=== PATIENT | female | born 1990 | race Two or more races ===

== ENCOUNTER 2021-01-05 02:22 | Emergency (ER) | payer OTHER, SELFPAY ==
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
[2021-01-05 02:37] VITALS: BP 130/84; BP 130/97; PULSE 100; PULSE 88; RESP 14; TEMP 36.9; O2SAT 100; O2SAT 99; BMI 15.6
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
[2021-01-05 04:27] VITALS: BP 109/65; PULSE 67; RESP 17; O2SAT 97
[2021-01-05] MEDS: Acetaminophen 325 MG TABLET 650 MG PO (04:28)
== END 2021-01-05 04:39 | disposition home or self-care (01) ==
PROVIDERS: Emergency Provider Emergency Medicine
DX: S00.01XA Abrasion of scalp, initial encounter (principal); Y00.XXXA Assault by blunt object, initial encounter; Y93.9 Activity, unspecified; Y92.9 Unspecified place or not applicable; Y99.9 Unspecified external cause status
CPT/HCPCS: 70450; 72125; 99284

== ENCOUNTER 2022-07-05 17:51 | Inpatient (IN) | payer OTHER, SELFPAY ==
--- NOTE | 2022-07-05 18:03 | ED.PSYCH ---
HPI - Psych General Chief Complaint: Psychiatric Symptoms Stated Complaint: CRISIS W/SI,NON MED COMPL,NEEDS MED CL PER EMS Time Seen by Provider: 07/05/22 17:53 Source: patient and EMS Mode of arrival: EMS Limitations: no limitations History of Present Illness HPI Narrative: This is a 31-year-old female history of schizophrenia presenting from home requesting a crisis evaluation, was seen by N in the community and placed on a Section 12, according to patient she is here because her sister made her come in to get evaluated, she tells me she has not been taking her medications because ?those things do not work ?. Patient tells me she feels fine otherwise. She was common cooperative for EMS. Arrives here denies visual, auditory and tactile hallucinations. Denies drugs, alcohol and tobacco. Patient tells me she used to smoke marijuana however has not smoking marijuana while. Patient denies all medical complaints at this time. Related Data Home Medications Medication Instructions Recorded Confirmed citalopram 10 mg tablet 1 tab PO DAILY 07/05/22 07/05/22 divalproex 500 mg tablet,delayed 1 tab PO BID 07/05/22 07/05/22 release mirtazapine 7.5 mg tablet 1 tab PO BEDTIME 07/05/22 07/05/22 prazosin 1 mg capsule 1 cap PO BID 07/05/22 07/05/22 Allergies Allergy/AdvReac Type Severity Reaction Status Date / Time Penicillins Allergy Rash Verified 01/05/21 02:37 Review of Systems Review of Systems: Constitutional : No Weight loss, No Fever, No Chills, No Fatigue, No Malaise ENT/Mouth : No sore throat, No Rhinorrhea Eyes: No Eye Pain, No Swelling, No Redness Cardiovascular : No Chest Pain, No SOB, No Dyspnea on Exertion, No Orthopnea, No Edema, No Palpitations Respiratory : No Cough, No Sputum, No Wheezing Gastrointestinal : No Nausea, No Vomiting, No Diarrhea, No Constipation, No abdominal Pain, No Hematochezia, No Melena Genitourinary : No Dysuria, No Urinary Frequency, No Hematuria, Musculoskeletal : No joint pain, No Myalgias, No Joint Swelling Skin : No Skin Lesions, No rash Neuro : No Weakness, No Numbness, No Dizziness, No Headache Psych : No Anxiety/Panic, No Depression All other systems reviewed and are negative Yes all other systems are reviewed and are negative PMFSH Past Medical History Attestation statement: The following information was validated with the patient. Source: old records reviewed and nursing notes reviewed Physical Exam Vital Signs: Vital Signs: Last Vital Signs Temp 98.3 F 07/05/22 18:07 Pulse 86 07/05/22 18:07 Resp 16 07/05/22 18:07 BP 121/84 07/05/22 18:07 Pulse Ox 96 07/05/22 18:07 O2 Del Method 07/05/22 18:07 BMI result Body Mass Index 18.3 Vital signs stable Appearance: Alert.? Oriented X3.? No acute distress.? Head: Normocephalic, atraumatic, no step-offs or deformities Eyes: Pupils equal, round and reactive to light.?? Neck: Normal inspection.? Neck supple.? CVS: Normal heart rate and rhythm.? Pulses normal.? Respiratory: No respiratory distress.? Breath sounds normal.? Abdomen: Soft and nontender.? Skin: Skin warm and dry.? Normal skin color.? Normal skin turgor.? Extremities: No lower extremity edema.? No calf ttp. 5/5 strength to bilateral upper and lower extremities Neuro: Oriented X 3.? No motor deficit.? No sensory deficit. CN 2-12 intact Course Reevaluation(s) Reevaluation #1: Patient's CBC appears to be within normal limits. Chemistry with no acute findings requiring intervention. UA without infection. Urine toxicology positive for PCP, marijuana. Patient's valproic acid level low, will continue home meds, acetaminophen, salicylates and ethanol negative. Med reconciliation will be done at this time. Patient COVID negative. Will be placed into physician observation to allow more time to be evaluated by the behavioral health team. At time observation was started patient calm & cooperative no acute distress will continue to monitor. Time: 19:29 Medical Decision Making Medical Decision Making MDM Narrative: 31-year-old female presents in acute manic episode coming from home brought in by EMS. Non med compliant Physical examination benign. However patient with rapid pressured speech. And racing thoughts. Concerns for possible schizophrenia/acute episode due to non med compliance. Unlikely metabolic causes. Will rule out polysubstance abuse and ethanol. Plan at this time medical clearance evaluation by the behavioral health team. Differential Diagnosis Differential Diagnoses: The differential diagnosis associated with the presentation includes Concerns for possible schizophrenia/acute episode due to non med compliance. Unlikely metabolic causes. Will rule out polysubstance abuse and ethanol. Admission/Observation Consideration of admission/observation: Escalation of care including admission/observation considered Consult Healthcare Provider Management of the patient was discussed with: Behavioral Health Provider Lab Data MDM Lab Attestation statement: I reviewed the patient's lab results. 07/05/22 18:38 07/05/22 18:38 Labs: Lab Results 07/05/22 07/05/22 07/05/22 Range/Units 18:29 18:29 18:29 WBC (4.8-10.8) X10*3/uL RBC (4.20-5.50) X10*6/uL Hgb (12.0-16.0) g/dl Hct (37.0-47.0) % MCV (80.0-98.0) fL MCH (27.0-33.0) pg MCHC (31.0-35.0) g/dl RDW (11.0-16.0) % Plt Count (160-400) X10*3/uL MPV (9.4-12.3) fL Immature Gran % (Auto) (0.0-0.4) % Neut % (Auto) (45-73) % Lymph % (Auto) (20-40) % Mills % (Auto) (2-11) % Eos % (Auto) (0-4) % Baso % (Auto) (0-2) % Lymph # (Auto) (1.2-4.9) X10*3/uL Mills # (Auto) (0.1-1.2) X10*3/uL Eos # (Auto) (0.0-0.4) X10*3/uL Baso # (Auto) (0.0-0.2) X10*3/uL Abs Immat Gran (auto) (0.00-0.03) X10*3/uL Absolute Neuts (auto) (2.0-8.3) x10*3/uL Absolute Nucleated RBC (0.0-0.012) X10*3/uL Nucleated RBC % (auto) (0.0-0.2) /100WBC Sodium (135-145) mmol/L Potassium (3.3-5.1) mmol/L Chloride (96-108) mmol/L Carbon Dioxide (22-29) mmol/L Anion Gap (12-20) BUN (9-16) mg/dL Creatinine (0.5-1.4) mg/dL Estim Creat Clear Calc Estimated GFR Random Glucose (60-115) mg/dL Calcium (8.4-10.2) mg/dL Magnesium (1.6-2.6) mg/dL Total Bilirubin (0.0-1.0) mg/dL AST (5-31) U/L ALT (0-31) U/L Alkaline Phosphatase (39-117) U/L Total Protein (6.5-8.0) g/dL Albumin (3.5-5.0) g/dL Urine Color Yellow Urine Appearance Clear Urine pH 6.5 (5.0-9.0) Ur Specific [place] <= 1.005 (1.005-1.025) Urine Protein Negative (Neg-Trace) mg/dL Urine Glucose (UA) Negative (Negative) mg/dL Urine Ketones Negative (Negative) mg/dL Urine Blood Negative (Negative) Urine Nitrite Negative (Negative) Ur Leukocyte Esterase Negative (Negative) Salicylates (15-30) mg/dL Urine Opiates Screen Not Detected (Not Detect) Urine Fentanyl Screen Not Detected (Not Detect) Acetaminophen (<30) mcg/mL Ur Barbiturates Screen Not Detected (Not Detect) Valproic Acid (50.0-100.0) mcg/mL Ur Phencyclidine Scrn POSITIVE H (Not Detect) Ur Amphetamines Screen Not Detected (Not Detect) U Benzodiazepines Scrn Not Detected (Not Detect) Urine Cocaine Screen Not Detected (Not Detect) U Marijuana (THC) Screen POSITIVE H (Not Detect) Ethyl Alcohol mg/dL COVID-19 (GURINDER) Negative (Negative) COVID-19 Clin Com See Note 07/05/22 07/05/22 07/05/22 Range/Units 18:38 18:38 18:38 WBC 9.8 (4.8-10.8) X10*3/uL RBC 4.37 (4.20-5.50) X10*6/uL Hgb 13.9 (12.0-16.0) g/dl Hct 42.0 (37.0-47.0) % MCV 96.1 (80.0-98.0) fL MCH 31.8 (27.0-33.0) pg MCHC 33.1 (31.0-35.0) g/dl RDW 12.4 (11.0-16.0) % Plt Count 221 (160-400) X10*3/uL MPV 10.7 (9.4-12.3) fL Immature Gran % (Auto) 0.3 (0.0-0.4) % Neut % (Auto) 57.5 (45-73) % Lymph % (Auto) 33.3 (20-40) % Mills % (Auto) 7.9 (2-11) % Eos % (Auto) 0.5 (0-4) % Baso % (Auto) 0.5 (0-2) % Lymph # (Auto) 3.3 (1.2-4.9) X10*3/uL Mills # (Auto) 0.8 (0.1-1.2) X10*3/uL Eos # (Auto) 0.1 (0.0-0.4) X10*3/uL Baso # (Auto) 0.1 (0.0-0.2) X10*3/uL Abs Immat Gran (auto) 0.03 (0.00-0.03) X10*3/uL Absolute Neuts (auto) 5.6 (2.0-8.3) x10*3/uL Absolute Nucleated RBC 0.000 (0.0-0.012) X10*3/uL Nucleated RBC % (auto) 0.0 (0.0-0.2) /100WBC Sodium 137 (135-145) mmol/L Potassium 4.1 (3.3-5.1) mmol/L Chloride 103 (96-108) mmol/L Carbon Dioxide 25 (22-29) mmol/L Anion Gap 13 (12-20) BUN 3 L (9-16) mg/dL Creatinine 0.83 (0.5-1.4) mg/dL Estim Creat Clear Calc 75.9 Estimated GFR > 60 Random Glucose 116 H (60-115) mg/dL Calcium 9.5 (8.4-10.2) mg/dL Magnesium 2.5 (1.6-2.6) mg/dL Total Bilirubin 0.7 (0.0-1.0) mg/dL AST 21 (5-31) U/L ALT 15 (0-31) U/L Alkaline Phosphatase 47 (39-117) U/L Total Protein 7.4 (6.5-8.0) g/dL Albumin 4.7 (3.5-5.0) g/dL Urine Color Urine Appearance Urine pH (5.0-9.0) Ur Specific [place] (1.005-1.025) Urine Protein (Neg-Trace) mg/dL Urine Glucose (UA) (Negative) mg/dL Urine Ketones (Negative) mg/dL Urine Blood (Negative) Urine Nitrite (Negative) Ur Leukocyte Esterase (Negative) Salicylates < 5.0 L (15-30) mg/dL Urine Opiates Screen (Not Detect) Urine Fentanyl Screen (Not Detect) Acetaminophen < 17 (<30) mcg/mL Ur Barbiturates Screen (Not Detect) Valproic Acid < 12.5 L (50.0-100.0) mcg/mL Ur Phencyclidine Scrn (Not Detect) Ur Amphetamines Screen (Not Detect) U Benzodiazepines Scrn (Not Detect) Urine Cocaine Screen (Not Detect) U Marijuana (THC) Screen (Not Detect) Ethyl Alcohol < 10 mg/dL COVID-19 (GURINDER) (Negative) COVID-19 Clin Com Core Measures AMI core measures followed: Yes Measure exclusions: not indicated Critical Care Time Critical Care Time Critical Care Time: No Discharge Plan Discharge Clinical Impression: PCP (phencyclidine) abuse, Medical non-compliance Patient Disposition: Still a Patient Prescriptions: No Action citalopram 10 mg tablet 1 tab PO DAILY prazosin 1 mg capsule 1 cap PO BID divalproex 500 mg tablet,delayed release (DR/EC) 1 tab PO BID mirtazapine 7.5 mg tablet 1 tab PO BEDTIME Interventions: Isabella-Suicide Risk Severity Scale Last Done: 07/05/22 19:11
[2022-07-05 18:07] VITALS: BP 114/70; BP 121/84; PULSE 86; PULSE 88; RESP 16; TEMP 36.8; O2SAT 96; O2SAT 98; BMI 18.3
--- NOTE | 2022-07-05 18:08 | MHC.CARE ---
Pt was evaluated by [facility] and an inpatient bedsearch
[2022-07-05 18:44] LABS: Basophils Absolute Auto 0.1 X10*3/uL (0.0-0.2); Basophils Percent Auto 0.5 % (0-2); Eosinophils Absolute Auto 0.1 X10*3/uL (0.0-0.4); Eosinophils Percent Auto 0.5 % (0-4); Hemoglobin 13.9 g/dl (12.0-16.0); Imm Gran Abs Auto 0.03 X10*3/uL (0.00-0.03); Imm Gran Pct Auto 0.3 % (0.0-0.4); Lymphocytes Absolute Auto 3.3 X10*3/uL (1.2-4.9); Lymphocytes Percent Auto 33.3 % (20-40); MANUAL DIFF FLAG NO; Mean Corpuscular HGB Conc 33.1 g/dl (31.0-35.0); Mean Corpuscular Hemoglobin 31.8 pg (27.0-33.0); Mean Corpuscular Volume 96.1 fL (80.0-98.0); Mean Platelet Volume 10.7 fL (9.4-12.3); Monocytes Absolute Auto 0.8 X10*3/uL (0.1-1.2); Monocytes Percent Auto 7.9 % (2-11); Neutrophils Absolute Auto 5.6 x10*3/uL (2.0-8.3); Neutrophils Percent Auto 57.5 % (45-73); Platelet Count 221 X10*3/uL (160-400); Red Blood Count 4.37 X10*6/uL (4.20-5.50); Red Cell Distribution Width 12.4 % (11.0-16.0); White Blood Count 9.8 X10*3/uL (4.8-10.8)
[2022-07-05 18:56] LABS: Appearance Urine Clear; Color Urine Yellow; Glucose Urine UA Negative (Negative); Leukocyte Esterase Urine Negative (Negative); Nitrite Urine Negative (Negative); PH 6.5 (5.0-9.0); Specific Gravity - Urine <= 1.005 (1.005-1.025); Urine Blood Negative (Negative); Urine Ketones Negative (Negative); Urine Protein Negative (Neg-Trace)
[2022-07-05 18:57] LABS: Amphetamine Screen Urine Not Detected (Not Detect); Barbiturates, Urine Not Detected (Not Detect); Benzodiazepines Screen Urine Not Detected (Not Detect); Cannabinoid Screen Urine POSITIVE (Not Detect); Cocaine Screen Urine Not Detected (Not Detect); Fentanyl, urine Not Detected (Not Detect); Opiate Screen Urine Not Detected (Not Detect); Phencyclidine Screen Urine POSITIVE (Not Detect)
[2022-07-05 18:59] LABS: Valproate < 12.5 mcg/mL (50.0-100.0)
[2022-07-05 19:04] LABS: Alanine Aminotransferase 15 U/L (0-31); Albumin Level 4.7 g/dL (3.5-5.0); Alkaline Phosphatase 47 U/L (39-117); Anion Gap 13 (12-20); Aspartate Amino Transferase 21 U/L (5-31); Bilirubin Total 0.7 mg/dL (0.0-1.0); Blood Urea Nitrogen 3 mg/dL (9-16); Calcium 9.5 mg/dL (8.4-10.2); Carbon Dioxide 25 mmol/L (22-29); Chloride 103 mmol/L (96-108); Creatinine Clr Calc Pharmacy 75.9; Estimated Glomerular Filt Rate > 60; Ethanol < 10 mg/dL; Glucose Random 116 mg/dL (60-115); Magnesium 2.5 mg/dL (1.6-2.6); Potassium 4.1 mmol/L (3.3-5.1); Sodium 137 mmol/L (135-145); Total Protein 7.4 g/dL (6.5-8.0)
[2022-07-05 19:05] LABS: COVID-19 Test Negative (Negative); IDNOW Serial# 55D5AD1C
[2022-07-05 19:17] LABS: Acetaminophen LAB < 17 mcg/mL (<30); Salicylate < 5.0 mg/dL (15-30)
[2022-07-05] MEDS: diphenhydrAMINE HCL 25 MG CAPSULE 50 MG PO (19:59)
[2022-07-05] MEDS: HaloperidoL 5 MG TABLET 10 MG PO (19:59)
--- NOTE | 2022-07-05 20:52 | PC.NURSE ---
Called [facility] ([facility]) @ [phone] spoke with Leandro, notified patient is in ED POD with disposition [id number] inpatient bed search. Patient was found standing on table and dancing, poor responses to redirection, intrusive at time, attempted pull out locker door, drawing all over the wall in her room, provider notified/ordered Benadryl 50 mg PO and Haldol 10 mg po, but took 25 mg Benadryl and 5 mg Haldol pending effect, will continue to monitor. l
[2022-07-06 02:02] VITALS: BP 117/69; PULSE 71; RESP 16; TEMP 36.2; O2SAT 97
[2022-07-06] MEDS: LORazepam 1 MG TABLET 2 MG PO (04:59)
[2022-07-06] MEDS: HaloperidoL 5 MG TABLET PO (04:59)
[2022-07-06 08:46] VITALS: BP 100/68; PULSE 73; RESP 16; TEMP 37.1; O2SAT 98
[2022-07-06] MEDS: Prazosin HCL 1 MG CAPSULE PO (09:05)
[2022-07-06] MEDS: Mirtazapine 7.5 MG TABLET PO (09:12)
[2022-07-06] MEDS: Escitalopram Oxalate 5 MG TABLET PO (09:12)
--- NOTE | 2022-07-06 10:23 | PC.NURSE ---
Pt sleeping at this time. Bedsearch continues.
--- NOTE | 2022-07-06 10:47 | ECG_ITS ---
Test Reason : medical clearance Blood Pressure : / mmHG Vent. Rate : 064 BPM Atrial Rate : 064 BPM P-R Int : 148 ms QRS Dur : 088 ms QT Int : 398 ms P-R-T Axes : 067 049 025 degrees QTc Int : 410 ms Artifact in tracing Normal sinus rhythm with sinus arrhythmia Normal ECG No previous ECGs available Referred By: Choco Barraza Electronically Signed By:MALCOLM COTA
[2022-07-06 18:00] VITALS: BP 112/83; PULSE 100; TEMP 36.7; O2SAT 98
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
--- NOTE | 2022-07-06 20:43 | PC.NURSE ---
pt refused night meds.
[2022-07-07] MEDS: traZODone HCL 50 MG TABLET PO ×2 (01:15→20:40)
[2022-07-07] MEDS: hydrOXYzine HCL 25 MG TABLET PO (01:15)
[2022-07-07 07:00] VITALS: BMI 21.6
[2022-07-07 08:21] VITALS: BP 109/58; PULSE 86; RESP 16; TEMP 36.6; O2SAT 96
[2022-07-07] MEDS: Prazosin HCL 1 MG CAPSULE PO ×2 (08:23→20:40)
[2022-07-07] MEDS: Escitalopram Oxalate 5 MG TABLET PO (08:23)
[2022-07-07] MEDS: Divalproex Sodium 500 MG TABLET.DR PO (08:23)
[2022-07-07 09:53] LABS: Estimated Average Glucose 97 mg/dL
[2022-07-07 10:12] LABS: Cholesterol 144 mg/dL; HDL Cholesterol 48 mg/dL; LDL Cholesterol Calculated 82 mg/dl; Magnesium 2.3 mg/dL (1.6-2.6); Triglycerides 74 mg/dL
[2022-07-07 10:40] LABS: Folate 12.8 ng/mL (> or = 4.0); Free T4 (Free Thyroxine) 1.17 ng/dL (0.71-1.85); Thyroid Stimulating Hormone 1.17 uIU/mL (0.32-4.0); Vitamin B12 461 pg/mL (200-900)
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
[2022-07-07 20:30] VITALS: BP 120/63; PULSE 80; TEMP 36.1; O2SAT 98
[2022-07-07] MEDS: HaloperidoL 5 MG TABLET 10 MG PO (20:39)
[2022-07-07] MEDS: Mirtazapine 7.5 MG TABLET PO (20:40)
--- NOTE | 2022-07-07 22:26 | PC.NURSE ---
Patient refused HS Depakote.
--- NOTE | 2022-07-07 23:24 | PC.NURSE ---
Patient refused her HS Depakote, 500 mg po. Patient stated I don't want to take that bipolar medicine.
[2022-07-08 06:00] VITALS: BP 102/60; PULSE 63; RESP 18; O2SAT 100
[2022-07-08] MEDS: Escitalopram Oxalate 5 MG TABLET PO (08:34)
[2022-07-08] MEDS: Prazosin HCL 1 MG CAPSULE PO ×2 (08:34→19:39)
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
--- NOTE | 2022-07-08 17:22 | P.PNPSI_ITS ---
Subjective Subjective Date of Service: 07/08/22 Reason For Visit: Schizophrenia,PTSD,polysubstance use order Subjective Notes: Conditional Voluntary and 3 Day Healthcare Proxy: No Guardianship: No Medical Problems Affecting Mental Status: No Interim History: Episode of agitation today, I had an outbreak I wanted to leave to get to my program-I miss them . Agreed to a trial of Vraylar. Asks to taper and stop Depakote. Discussed care with ship officer, Sondra who reports a condition of her probation is treatment compliance. Pt has a three day notice in. Discussed getting her regime stable and then seeing if she can return to her program. Medication Compliance: Yes Side effects from medications: No Attending Groups: Intermittent Review of Systems Acute medical concerns: No Medical Review of Systems: unchanged Mental Status Exam Mental Status Exam Patient Appearance: Fatigued Patient Orientation: Person, Place, Time and Situation Level of Consciousness: Alert Patient Behavior: Talkative, Cooperative, Anxious, Fatigued, Distractible, Confused and Poor Eye Contact Mood Description: Depressed and Sad Affect Description: Flat Patient Cognition Impaired: No Ability to Follow Directions: Fair Speech Pattern: Perseverating, Spontaneous Speech, Rambling, Soft-Spoken and Delayed Memory Description: Remote Impaired and Episodic Impaired Hallucinations: None Delusions: Paranoid Ideation Perceptual Disturbances: Depersonalization and Derealization Thought Process: Distracted and Rumination Thought Content: positive for Circumstantial, positive for Perseveration and positive for Tangential Depressive Symptoms: Increased Anxiety, Insomnia, Difficulty Sleeping, Loss of Int. in Activity, Feelings of Worthlessness, Hopelessness, Feelings of Guilt, Unhappiness, Low Self Esteem and Difficulty Concentrating Judgement: Poor Diagnostics Vital Signs (24Hr): Vital Signs - 24 hr 07/07/22 20:30 07/08/22 06:00 Temperature 97.0 F Pulse Rate 80 63 Respiratory Rate 18 Blood Pressure 120/63 102/60 Pulse Oximetry 98 100 Oxygen Delivery Method Room Air Room Air BMI result Body Mass Index 21.6 Labs 07/05/22 18:38 07/05/22 18:38 Labs: Laboratory Results - last 48 hr 07/07/22 07/07/22 09:15 09:15 Estimat Average Glucose 97 Hemoglobin A1c % 5.0 Magnesium 2.3 Triglycerides 74 Cholesterol 144 LDL Cholesterol, Calc 82 HDL Cholesterol 48 Vitamin B12 461 Folate 12.8 TSH 1.17 Free T4 1.17 Medications Medications Current Medications Acetaminophen (Acetaminophen 325 Mg Tablet) 650 mg PO Q6H PRN PRN Reason: Headache/Pain Mild Scale (1-3) Al Hydroxide/Mg Hydroxide (Magnesium Hydrox/Alum Hydrox 30 Ml Oral.Susp) 30 ml PO Q6H PRN PRN Reason: Heartburn/Nausea Cariprazine (Cariprazine Hcl 3 Mg Capsule) 3 mg PO DAILY [facility] Divalproex Sodium (Divalproex Sodium 500 Mg Tablet.Dr) 500 mg PO BEDTIME [facility] Escitalopram Oxalate (Escitalopram Oxalate 5 Mg Tablet) 5 mg PO DAILY [facility] Last Admin: 07/08/22 08:34 Dose: 5 mg Haloperidol (Haloperidol 5 Mg Tablet) 10 mg PO Q4H PRN PRN Reason: psychosis, agitation Haloperidol (Haloperidol 5 Mg Tablet) 10 mg PO BEDTIME [facility] Last Admin: 07/07/22 20:39 Dose: 10 mg Hydroxyzine HCl (Hydroxyzine Hcl 25 Mg Tablet) 25 mg PO Q6H PRN PRN Reason: Anxiety Last Admin: 07/07/22 01:15 Dose: 25 mg Lorazepam (Lorazepam 1 Mg Tablet) 1 mg PO Q6H PRN PRN Reason: anxiety Magnesium Hydroxide (Milk Of Magnesia 30 Ml Oral.Susp) 30 ml PO DAILY PRN PRN Reason: Constipation Mirtazapine (Mirtazapine 7.5 Mg Tablet) 7.5 mg PO BEDTIME [facility] Last Admin: 07/07/22 20:40 Dose: 7.5 mg Pharmacy Consult (Consult Rx Perform Med Rec) 1 each MISCELLANE ONCE PRN PRN Reason: Consult order Prazosin HCl (Prazosin Hcl 1 Mg Capsule) 1 mg PO BID [facility]; Protocol Last Admin: 07/08/22 08:34 Dose: 1 mg Trazodone HCl (Trazodone Hcl 50 Mg Tablet) 50 mg PO BEDTIME MRX1 PRN PRN Reason: Insomnia Last Admin: 07/07/22 20:40 Dose: 50 mg Allergies Allergies Allergy/AdvReac Type Severity Reaction Status Date / Time Penicillins Allergy Rash Verified 01/05/21 02:37 Assessment & Plan Assessment & Plan (1) PCP (phencyclidine) abuse: Status: Acute Code(s): 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 Family brought pt to court to attempt Section 35, however, pt was sent for mental health eval. Plan: Continue current regime Haldol 10 mg HS Collateral contacts Diagnostics as needed Pt had signed a three day notice of intent today, 07/07-07/12. 07/08/22: Decrease Depakote to 500 mg hs Vraylar 3 mg a.m. Patient educated on: medication risk/benefits Informed Consent: further education needed Reason for contiued inpatient stay Substantial Risk for: rapid decompensation Time Spent With Patient Time: Total time managing care of this patient today 20 minutes.
[2022-07-08 18:00] VITALS: BP 114/70; PULSE 84
[2022-07-08] MEDS: Mirtazapine 7.5 MG TABLET PO (19:39)
[2022-07-08] MEDS: HaloperidoL 5 MG TABLET 10 MG PO (19:39)
[2022-07-08] MEDS: Divalproex Sodium 500 MG TABLET.DR PO (19:39)
[2022-07-08] MEDS: traZODone HCL 50 MG TABLET PO (20:30)
[2022-07-09 08:00] VITALS: BP 109/57; PULSE 70; TEMP 36.6; O2SAT 98
[2022-07-09] MEDS: Escitalopram Oxalate 5 MG TABLET PO (09:05)
[2022-07-09] MEDS: Cariprazine HCl 3 MG CAPSULE PO (09:05)
[2022-07-09] MEDS: Prazosin HCL 1 MG CAPSULE PO ×2 (09:05→20:47)
--- NOTE | 2022-07-09 12:55 | HO.PSYCHPN ---
Subjective Subjective Date of Service: 07/09/22 Reason For Visit: Schizophrenia,PTSD,polysubstance use order Interim History: Patient seen. She has been calm since last agitated episode. Adherent to medications. No side effects. Feels the changes are helpful. Denies SI Review of Systems Review of Systems Constitutional : No Weight loss, No Fever, No Chills, No Fatigue, No Malaise ENT/Mouth : No sore throat, No Rhinorrhea Eyes: No Eye Pain, No Swelling, No Redness Cardiovascular : No Chest Pain, No SOB, No Dyspnea on Exertion, No Orthopnea, No Edema, No Palpitations Respiratory : No Cough, No Sputum, No Wheezing Gastrointestinal : No Nausea, No Vomiting, No Diarrhea, No Constipation, No abdominal Pain, No Hematochezia, No Melena Genitourinary : No Dysuria, No Urinary Frequency, No Hematuria, Musculoskeletal : No joint pain, No Myalgias, No Joint Swelling Skin : No Skin Lesions, No rash Neuro : No Weakness, No Numbness, No Dizziness, No Headache Psych : No Anxiety/Panic, No Depression All other systems reviewed and are negative Yes all other systems are reviewed and are negative Mental Status Exam Mental Status Exam Patient Appearance: Fatigued Patient Orientation: Person, Place, Time and Situation Level of Consciousness: Alert Patient Behavior: Talkative, Cooperative, Anxious, Fatigued, Distractible, Confused and Poor Eye Contact Mood Description: Depressed and Sad Affect Description: Flat Patient Cognition Impaired: No Ability to Follow Directions: Fair Speech Pattern: Perseverating, Spontaneous Speech, Soft-Spoken and Delayed Memory Description: Remote Impaired and Episodic Impaired Diagnostics Vital Signs (24Hr): Vital Signs - 24 hr 07/09/22 08:00 07/09/22 18:00 Temperature 97.9 F 97.8 F Pulse Rate 70 65 Respiratory Rate 18 Blood Pressure 109/57 L 109/61 Pulse Oximetry 98 99 Oxygen Delivery Method Room Air Room Air BMI result Body Mass Index 21.6 Labs 07/05/22 18:38 07/05/22 18:38 Medications Medications Current Medications Acetaminophen (Acetaminophen 325 Mg Tablet) 650 mg PO Q6H PRN PRN Reason: Headache/Pain Mild Scale (1-3) Al Hydroxide/Mg Hydroxide (Magnesium Hydrox/Alum Hydrox 30 Ml Oral.Susp) 30 ml PO Q6H PRN PRN Reason: Heartburn/Nausea Cariprazine (Cariprazine Hcl 3 Mg Capsule) 3 mg PO DAILY [facility] Last Admin: 07/09/22 09:05 Dose: 3 mg Divalproex Sodium (Divalproex Sodium 500 Mg Tablet.Dr) 500 mg PO BEDTIME [facility] Last Admin: 07/09/22 20:47 Dose: 500 mg Escitalopram Oxalate (Escitalopram Oxalate 5 Mg Tablet) 5 mg PO DAILY [facility] Last Admin: 07/09/22 09:05 Dose: 5 mg Haloperidol (Haloperidol 5 Mg Tablet) 10 mg PO Q4H PRN PRN Reason: psychosis, agitation Haloperidol (Haloperidol 5 Mg Tablet) 10 mg PO BEDTIME [facility] Last Admin: 07/09/22 20:47 Dose: 10 mg Hydroxyzine HCl (Hydroxyzine Hcl 25 Mg Tablet) 25 mg PO Q6H PRN PRN Reason: Anxiety Last Admin: 07/07/22 01:15 Dose: 25 mg Lorazepam (Lorazepam 1 Mg Tablet) 1 mg PO Q6H PRN PRN Reason: anxiety Last Admin: 07/09/22 20:47 Dose: 1 mg Magnesium Hydroxide (Milk Of Magnesia 30 Ml Oral.Susp) 30 ml PO DAILY PRN PRN Reason: Constipation Mirtazapine (Mirtazapine 7.5 Mg Tablet) 7.5 mg PO BEDTIME [facility] Last Admin: 07/09/22 20:47 Dose: 7.5 mg Pharmacy Consult (Consult Rx Perform Med Rec) 1 each MISCELLANE ONCE PRN PRN Reason: Consult order Prazosin HCl (Prazosin Hcl 1 Mg Capsule) 1 mg PO BID [facility]; Protocol Last Admin: 07/09/22 20:47 Dose: 1 mg Trazodone HCl (Trazodone Hcl 50 Mg Tablet) 50 mg PO BEDTIME MRX1 PRN PRN Reason: Insomnia Last Admin: 07/09/22 20:47 Dose: 50 mg Allergies Allergies Allergy/AdvReac Type Severity Reaction Status Date / Time Penicillins Allergy Rash Verified 01/05/21 02:37 Assessment & Plan Assessment & Plan (1) PCP (phencyclidine) abuse: Status: Acute Code(s): 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 Family brought pt to court to attempt Section 35, however, pt was sent for mental health eval. Plan: Continue current regime Haldol 10 mg HS Collateral contacts Diagnostics as needed Pt had signed a three day notice of intent today, 07/07-07/12. 07/08/22: Decrease Depakote to 500 mg hs Vraylar 3 mg a.m. 07/09: Continue tx plan. Reason for contiued inpatient stay Substantial Risk for: inability to function and rapid decompensation Time Spent With Patient Time: Total time managing care of this patient today ____ minutes.
[2022-07-09 18:00] VITALS: BP 109/61; PULSE 65; RESP 18; TEMP 36.6; O2SAT 99
[2022-07-09] MEDS: HaloperidoL 5 MG TABLET 10 MG PO (20:47)
[2022-07-09] MEDS: Divalproex Sodium 500 MG TABLET.DR PO (20:47)
[2022-07-09] MEDS: traZODone HCL 50 MG TABLET PO (20:47)
[2022-07-09] MEDS: Mirtazapine 7.5 MG TABLET PO (20:47)
[2022-07-09] MEDS: LORazepam 1 MG TABLET PO (20:47)
[2022-07-10 06:00] VITALS: BP 107/60; PULSE 78; RESP 16
[2022-07-10] MEDS: Escitalopram Oxalate 5 MG TABLET PO (08:58)
[2022-07-10] MEDS: Prazosin HCL 1 MG CAPSULE PO ×2 (08:58→19:37)
[2022-07-10] MEDS: Cariprazine HCl 3 MG CAPSULE PO (08:58)
--- NOTE | 2022-07-10 12:15 | HO.PSYCHPN ---
Subjective Subjective Date of Service: 07/10/22 Reason For Visit: Schizophrenia,PTSD,polysubstance use order Interim History: Patient seen. Complains of feeling bored. She has been adherent to medications. No side effects. Feels the changes are helpful. Improved mood. Improved sleep. No agitation. Denies SI Review of Systems Review of Systems Constitutional : No Weight loss, No Fever, No Chills, No Fatigue, No Malaise ENT/Mouth : No sore throat, No Rhinorrhea Eyes: No Eye Pain, No Swelling, No Redness Cardiovascular : No Chest Pain, No SOB, No Dyspnea on Exertion, No Orthopnea, No Edema, No Palpitations Respiratory : No Cough, No Sputum, No Wheezing Gastrointestinal : No Nausea, No Vomiting, No Diarrhea, No Constipation, No abdominal Pain, No Hematochezia, No Melena Genitourinary : No Dysuria, No Urinary Frequency, No Hematuria, Musculoskeletal : No joint pain, No Myalgias, No Joint Swelling Skin : No Skin Lesions, No rash Neuro : No Weakness, No Numbness, No Dizziness, No Headache Psych : No Anxiety/Panic, No Depression All other systems reviewed and are negative Yes all other systems are reviewed and are negative Mental Status Exam Mental Status Exam Patient Appearance: Fatigued and Appropriate Patient Orientation: Person, Place, Time and Situation Level of Consciousness: Alert Patient Behavior: Appropriate, Talkative, Cooperative, Anxious and Fatigued Mood Description: Calm, Constricted, Depressed and Blunted Affect Description: Blunted and Flat Patient Cognition Impaired: No Ability to Follow Directions: Good Speech Pattern: Clear, Spontaneous Speech, Soft-Spoken and Delayed Memory Description: Remote Impaired and Episodic Impaired Hallucinations: None Diagnostics Vital Signs (24Hr): Vital Signs - 24 hr 07/10/22 06:00 07/10/22 17:11 Temperature 97.7 F Pulse Rate 78 60 Respiratory Rate 16 Blood Pressure 107/60 101/55 L Pulse Oximetry 99 Oxygen Delivery Method Room Air Room Air BMI result Body Mass Index 21.6 Labs 07/05/22 18:38 07/05/22 18:38 Medications Medications Current Medications Acetaminophen (Acetaminophen 325 Mg Tablet) 650 mg PO Q6H PRN PRN Reason: Headache/Pain Mild Scale (1-3) Al Hydroxide/Mg Hydroxide (Magnesium Hydrox/Alum Hydrox 30 Ml Oral.Susp) 30 ml PO Q6H PRN PRN Reason: Heartburn/Nausea Cariprazine (Cariprazine Hcl 3 Mg Capsule) 3 mg PO DAILY COUNTS INCLUDE 234 BEDS AT THE [facility] Last Admin: 07/10/22 08:58 Dose: 3 mg Divalproex Sodium (Divalproex Sodium 500 Mg Tablet.Dr) 500 mg PO BEDTIME COUNTS INCLUDE 234 BEDS AT THE [facility] Last Admin: 07/10/22 19:37 Dose: 500 mg Escitalopram Oxalate (Escitalopram Oxalate 5 Mg Tablet) 5 mg PO DAILY COUNTS INCLUDE 234 BEDS AT THE [facility] Last Admin: 07/10/22 08:58 Dose: 5 mg Haloperidol (Haloperidol 5 Mg Tablet) 10 mg PO Q4H PRN PRN Reason: psychosis, agitation Haloperidol (Haloperidol 5 Mg Tablet) 10 mg PO BEDTIME COUNTS INCLUDE 234 BEDS AT THE [facility] Last Admin: 07/10/22 19:37 Dose: 10 mg Hydroxyzine HCl (Hydroxyzine Hcl 25 Mg Tablet) 25 mg PO Q6H PRN PRN Reason: Anxiety Last Admin: 07/07/22 01:15 Dose: 25 mg Lorazepam (Lorazepam 1 Mg Tablet) 1 mg PO Q6H PRN PRN Reason: anxiety Last Admin: 07/09/22 20:47 Dose: 1 mg Magnesium Hydroxide (Milk Of Magnesia 30 Ml Oral.Susp) 30 ml PO DAILY PRN PRN Reason: Constipation Mirtazapine (Mirtazapine 7.5 Mg Tablet) 7.5 mg PO BEDTIME COUNTS INCLUDE 234 BEDS AT THE [facility] Last Admin: 07/10/22 19:37 Dose: 7.5 mg Pharmacy Consult (Consult Rx Perform Med Rec) 1 each MISCELLANE ONCE PRN PRN Reason: Consult order Prazosin HCl (Prazosin Hcl 1 Mg Capsule) 1 mg PO BID COUNTS INCLUDE 234 BEDS AT THE [facility]; Protocol Last Admin: 07/10/22 19:37 Dose: 1 mg Trazodone HCl (Trazodone Hcl 50 Mg Tablet) 50 mg PO BEDTIME MRX1 PRN PRN Reason: Insomnia Last Admin: 07/10/22 21:05 Dose: 50 mg Allergies Allergies Allergy/AdvReac Type Severity Reaction Status Date / Time Penicillins Allergy Rash Verified 01/05/21 02:37 Assessment & Plan Assessment & Plan (1) PCP (phencyclidine) abuse: Status: Acute Code(s): 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 Family brought pt to court to attempt Section 35, however, pt was sent for mental health eval. Plan: Continue current regime Haldol 10 mg HS Collateral contacts Diagnostics as needed Pt had signed a three day notice of intent today, 07/07-07/12. 07/08/22: Decrease Depakote to 500 mg hs Vraylar 3 mg a.m. 07/09: Continue tx plan. 07/10: Continue tx plan. Reason for contiued inpatient stay Substantial Risk for: inability to function and rapid decompensation Time Spent With Patient Time: Total time managing care of this patient today ____ minutes.
[2022-07-10 17:11] VITALS: BP 101/55; PULSE 60; TEMP 36.5; O2SAT 99
[2022-07-10] MEDS: Divalproex Sodium 500 MG TABLET.DR PO (19:37)
[2022-07-10] MEDS: HaloperidoL 5 MG TABLET 10 MG PO (19:37)
[2022-07-10] MEDS: Mirtazapine 7.5 MG TABLET PO (19:37)
[2022-07-10] MEDS: traZODone HCL 50 MG TABLET PO (21:05)
[2022-07-11 08:10] VITALS: BP 108/60; PULSE 71; RESP 18; TEMP 36.6; O2SAT 98
[2022-07-11] MEDS: Prazosin HCL 1 MG CAPSULE PO ×2 (08:31→20:13)
[2022-07-11] MEDS: Escitalopram Oxalate 5 MG TABLET PO (08:31)
[2022-07-11] MEDS: Cariprazine HCl 3 MG CAPSULE PO (08:31)
--- NOTE | 2022-07-11 13:05 | HO.PSYCHPN ---
Subjective Subjective Date of Service: 07/11/22 Reason For Visit: Schizophrenia,PTSD,polysubstance use order Subjective Notes: 3 Day Healthcare Proxy: No Guardianship: No Medical Problems Affecting Mental Status: No Interim History: Three day notice to 07/12/22. Tolerating Vraylar. Unsure if she wants to continue medications. Finds edibles and smoking cannabis to be more helpful. Pt spoke with her collections officer, Sondra, who encouraged her to remain on track and will assist her in returning to her requested program. Planning discharge tomorrow. Ambivalent about treatment. Medication Compliance: Yes Side effects from medications: No Attending Groups: Intermittent Review of Systems Acute medical concerns: No Medical Review of Systems: unchanged Mental Status Exam Mental Status Exam Patient Appearance: Fatigued and Appropriate Patient Orientation: Person, Place, Time and Situation Level of Consciousness: Alert Patient Behavior: Talkative Mood Description: Withdrawn, Constricted and Labile Affect Description: Constricted and Labile Patient Cognition Impaired: No Ability to Follow Directions: Fair Speech Pattern: Perseverating and Spontaneous Speech Memory Description: Intact Hallucinations: None Perceptual Disturbances: Depersonalization and Derealization Thought Content: positive for [place], positive for Circumstantial and positive for Suicidal Ideation (denies) Depressive Symptoms: Thoughts of /Suicide (denies) and Low Self Esteem Judgement: Good Diagnostics Vital Signs (24Hr): Vital Signs - 24 hr 07/10/22 17:11 07/11/22 08:10 Temperature 97.7 F 97.9 F Pulse Rate 60 71 Respiratory Rate 18 Blood Pressure 101/55 L 108/60 Pulse Oximetry 99 98 Oxygen Delivery Method Room Air Room Air BMI result Body Mass Index 21.6 Labs 07/05/22 18:38 07/05/22 18:38 Medications Medications Current Medications Acetaminophen (Acetaminophen 325 Mg Tablet) 650 mg PO Q6H PRN PRN Reason: Headache/Pain Mild Scale (1-3) Al Hydroxide/Mg Hydroxide (Magnesium Hydrox/Alum Hydrox 30 Ml Oral.Susp) 30 ml PO Q6H PRN PRN Reason: Heartburn/Nausea Cariprazine (Cariprazine Hcl 3 Mg Capsule) 3 mg PO DAILY [facility] Last Admin: 07/11/22 08:31 Dose: 3 mg Divalproex Sodium (Divalproex Sodium 500 Mg Tablet.) 500 mg PO BEDTIME [facility] Last Admin: 07/10/22 19:37 Dose: 500 mg Escitalopram Oxalate (Escitalopram Oxalate 5 Mg Tablet) 5 mg PO DAILY [facility] Last Admin: 07/11/22 08:31 Dose: 5 mg Haloperidol (Haloperidol 5 Mg Tablet) 10 mg PO Q4H PRN PRN Reason: psychosis, agitation Haloperidol (Haloperidol 5 Mg Tablet) 10 mg PO BEDTIME [facility] Last Admin: 07/10/22 19:37 Dose: 10 mg Hydroxyzine HCl (Hydroxyzine Hcl 25 Mg Tablet) 25 mg PO Q6H PRN PRN Reason: Anxiety Last Admin: 07/07/22 01:15 Dose: 25 mg Lorazepam (Lorazepam 1 Mg Tablet) 1 mg PO Q6H PRN PRN Reason: anxiety Last Admin: 07/09/22 20:47 Dose: 1 mg Magnesium Hydroxide (Milk Of Magnesia 30 Ml Oral.Susp) 30 ml PO DAILY PRN PRN Reason: Constipation Mirtazapine (Mirtazapine 7.5 Mg Tablet) 7.5 mg PO BEDTIME [facility] Last Admin: 07/10/22 19:37 Dose: 7.5 mg Pharmacy Consult (Consult Rx Perform Med Rec) 1 each MISCELLANE ONCE PRN PRN Reason: Consult order Prazosin HCl (Prazosin Hcl 1 Mg Capsule) 1 mg PO BID [facility]; Protocol Last Admin: 07/11/22 08:31 Dose: 1 mg Trazodone HCl (Trazodone Hcl 50 Mg Tablet) 50 mg PO BEDTIME MRX1 PRN PRN Reason: Insomnia Last Admin: 07/10/22 21:05 Dose: 50 mg Allergies Allergies Allergy/AdvReac Type Severity Reaction Status Date / Time Penicillins Allergy Rash Verified 01/05/21 02:37 Assessment & Plan Assessment & Plan (1) PCP (phencyclidine) abuse: Status: Acute Code(s): 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 Family brought pt to court to attempt Section 35, however, pt was sent for mental health eval. Plan: Continue current regime Haldol 10 mg HS Collateral contacts Diagnostics as needed Pt had signed a three day notice of intent today, 07/07-07/12. 07/08/22: Decrease Depakote to 500 mg hs Vraylar 3 mg a.m. 07/09: Continue tx plan. 07/10: Continue tx plan. 07/11/22- Continue current plan of care. Discharge via three day on 07/12/22. Patient educated on: therapeutic strategies Informed Consent: understands Reason for contiued inpatient stay Substantial Risk for: rapid decompensation Time Spent With Patient Time: Total time managing care of this patient today ____ minutes.
[2022-07-11 19:50] VITALS: BP 101/60; PULSE 52; TEMP 36.2
[2022-07-11] MEDS: traZODone HCL 50 MG TABLET PO (20:13)
[2022-07-11] MEDS: HaloperidoL 5 MG TABLET 10 MG PO (20:14)
[2022-07-11] MEDS: Divalproex Sodium 500 MG TABLET.DR PO (20:14)
[2022-07-11] MEDS: Mirtazapine 7.5 MG TABLET PO (20:15)
[2022-07-12] MEDS: Cariprazine HCl 3 MG CAPSULE PO (09:03)
[2022-07-12] MEDS: Escitalopram Oxalate 5 MG TABLET PO (09:03)
[2022-07-12] MEDS: Prazosin HCL 1 MG CAPSULE PO (09:03)
[2022-07-12 09:07] VITALS: BP 105/59; PULSE 64; RESP 18; TEMP 36.6; O2SAT 98
[2022-07-12] MEDS: Nicotine Polacrilex 2 MG GUM 4 MG BUCCAL (09:24)
--- NOTE | 2022-07-12 16:19 | P.DS_ITS ---
DS: Providers Provider Date of Service: 07/12/22 Date of admission: 07/06/22 14:54 Date of discharge: 07/12/22 Primary care physician: Unknown Physician Admitting clinician: Yuly Alvarez Attending physician on admission: Sai Savage Attending physician on discharge: Sai Savage Discharging clinician: Yuly Alvarez DS: Diagnosis Discharge Diagnosis (1) PCP (phencyclidine) abuse: Status: Acute (2) PTSD (post-traumatic stress disorder): Status: Acute (3) Schizophrenia: Status: Acute DS: Medications Discharge Medications Home Medications: Previous Rx's Medication Instructions Recorded cariprazine 3 mg capsule (Vraylar) 3 mg PO DAILY #30 caps 07/12/22 escitalopram oxalate 5 mg tablet 5 mg PO DAILY #30 tabs 07/12/22 haloperidol 5 mg tablet 10 mg PO BEDTIME #30 tabs 07/12/22 mirtazapine 7.5 mg tablet 1 tab PO BEDTIME #30 tabs 07/12/22 nicotine (polacrilex) 2 mg gum 4 mg buccal Q2H PRN Nicotine 07/12/22 Cravings #60 ea nicotine 21 mg/24 hr daily 21 mg transdermal DAILY #30 ea 07/12/22 transdermal patch prazosin 1 mg capsule 1 cap PO BID #60 caps 07/12/22 Mental Status Exam Mental Status Exam Patient Appearance: Fatigued and Appropriate Patient Orientation: Person, Place, Time and Situation Level of Consciousness: Alert Patient Behavior: Talkative Mood Description: Withdrawn, Constricted and Labile Affect Description: Constricted and Labile Patient Cognition Impaired: No Ability to Follow Directions: Fair Speech Pattern: Perseverating and Spontaneous Speech Memory Description: Intact Hallucinations: None Perceptual Disturbances: Depersonalization and Derealization Thought Content: positive for [place], positive for Circumstantial and positive for Suicidal Ideation (denies) Depressive Symptoms: Thoughts of /Suicide (denies) and Low Self Esteem Judgement: Good Data Data Completed and Pending Completed studies during hospitalization [Text1]: 07/05/22 07/05/22 07/05/22 18:29 18:29 18:29 WBC RBC Hgb Hct MCV MCH MCHC RDW Plt Count MPV Immature Gran % (Auto) Neut % (Auto) Lymph % (Auto) Graves % (Auto) Eos % (Auto) Baso % (Auto) Lymph # (Auto) Graves # (Auto) Eos # (Auto) Baso # (Auto) Abs Immat Gran (auto) Absolute Neuts (auto) Absolute Nucleated RBC Nucleated RBC % (auto) Sodium Potassium Chloride Carbon Dioxide Anion Gap BUN Creatinine Estim Creat Clear Calc Estimated GFR Random Glucose Estimat Average Glucose Hemoglobin A1c % Calcium Magnesium Total Bilirubin AST ALT Alkaline Phosphatase Total Protein Albumin Triglycerides Cholesterol LDL Cholesterol, Calc HDL Cholesterol Vitamin B12 Folate TSH Free T4 Urine Color Yellow Urine Appearance Clear Urine pH 6.5 Ur Specific [place] <= 1.005 Urine Protein Negative Urine Glucose (UA) Negative Urine Ketones Negative Urine Blood Negative Urine Nitrite Negative Ur Leukocyte Esterase Negative Salicylates Urine Opiates Screen Not Detected Urine Fentanyl Screen Not Detected Acetaminophen Ur Barbiturates Screen Not Detected Valproic Acid Ur Phencyclidine Scrn POSITIVE H Ur Amphetamines Screen Not Detected U Benzodiazepines Scrn Not Detected Urine Cocaine Screen Not Detected U Marijuana (THC) Screen POSITIVE H Ethyl Alcohol COVID-19 ([facility]) Negative COVID-19 Clin Com See Note 07/05/22 07/05/22 07/05/22 18:38 18:38 18:38 WBC 9.8 RBC 4.37 Hgb 13.9 Hct 42.0 MCV 96.1 MCH 31.8 MCHC 33.1 RDW 12.4 Plt Count 221 MPV 10.7 Immature Gran % (Auto) 0.3 Neut % (Auto) 57.5 Lymph % (Auto) 33.3 Graves % (Auto) 7.9 Eos % (Auto) 0.5 Baso % (Auto) 0.5 Lymph # (Auto) 3.3 Graves # (Auto) 0.8 Eos # (Auto) 0.1 Baso # (Auto) 0.1 Abs Immat Gran (auto) 0.03 Absolute Neuts (auto) 5.6 Absolute Nucleated RBC 0.000 Nucleated RBC % (auto) 0.0 Sodium 137 Potassium 4.1 Chloride 103 Carbon Dioxide 25 Anion Gap 13 BUN 3 L Creatinine 0.83 Estim Creat Clear Calc 75.9 Estimated GFR > 60 Random Glucose 116 H Estimat Average Glucose Hemoglobin A1c % Calcium 9.5 Magnesium 2.5 Total Bilirubin 0.7 AST 21 ALT 15 Alkaline Phosphatase 47 Total Protein 7.4 Albumin 4.7 Triglycerides Cholesterol LDL Cholesterol, Calc HDL Cholesterol Vitamin B12 Folate TSH Free T4 Urine Color Urine Appearance Urine pH Ur Specific [place] Urine Protein Urine Glucose (UA) Urine Ketones Urine Blood Urine Nitrite Ur Leukocyte Esterase Salicylates < 5.0 L Urine Opiates Screen Urine Fentanyl Screen Acetaminophen < 17 Ur Barbiturates Screen Valproic Acid < 12.5 L Ur Phencyclidine Scrn Ur Amphetamines Screen U Benzodiazepines Scrn Urine Cocaine Screen U Marijuana (THC) Screen Ethyl Alcohol < 10 COVID-19 ([facility]) COVID-19 Clin Com 07/07/22 07/07/22 09:15 09:15 WBC RBC Hgb Hct MCV MCH MCHC RDW Plt Count MPV Immature Gran % (Auto) Neut % (Auto) Lymph % (Auto) Graves % (Auto) Eos % (Auto) Baso % (Auto) Lymph # (Auto) Graves # (Auto) Eos # (Auto) Baso # (Auto) Abs Immat Gran (auto) Absolute Neuts (auto) Absolute Nucleated RBC Nucleated RBC % (auto) Sodium Potassium Chloride Carbon Dioxide Anion Gap BUN Creatinine Estim Creat Clear Calc Estimated GFR Random Glucose Estimat Average Glucose 97 Hemoglobin A1c % 5.0 Calcium Magnesium 2.3 Total Bilirubin AST ALT Alkaline Phosphatase Total Protein Albumin Triglycerides 74 Cholesterol 144 LDL Cholesterol, Calc 82 HDL Cholesterol 48 Vitamin B12 461 Folate 12.8 TSH 1.17 Free T4 1.17 Urine Color Urine Appearance Urine pH Ur Specific [place] Urine Protein Urine Glucose (UA) Urine Ketones Urine Blood Urine Nitrite Ur Leukocyte Esterase Salicylates Urine Opiates Screen Urine Fentanyl Screen Acetaminophen Ur Barbiturates Screen Valproic Acid Ur Phencyclidine Scrn Ur Amphetamines Screen U Benzodiazepines Scrn Urine Cocaine Screen U Marijuana (THC) Screen Ethyl Alcohol COVID-19 ([facility]) COVID-19 Clin Com DS: Summary Hospital Course Hospital Course: Admission to adult psychiatry for exacerbation of schizophrenia, PTSD, polysubstance use disorder and PCP use disorder. Vraylar was initiated. Haldol is used to augment during Vraylar titration. Citalopram was changed to Escitalopram. Valproate was stopped. Mirtazapine and Prazosin were continued. Time spent discussing smoking cessation with patient: 3 to 10 minutes Status at Discharge Functional status at discharge: independent ambulation Overall status at discharge: patient is progressing back to baseline Time Spent with Patient Time attestation: Total time managing care of this patient today ____ minutes. Time spent: Greater than 30 minutes Discharge Plan Discharge Anticipated Discharge Date/Time: 07/12/22 12:14 Patient Disposition: Home, Self-Care Discharge Diagnosis: PTSD PCP Use Disorder Schizoaffective Disorder Referrals: Alaina Max: [facility] [Other] - 07/28/22 12:00 pm (Follow-up appointment with outpatient therapist Appointment is in Person at Clinic) Apurva Valenzuela: [facility] (psychiatric provider) [Other] - 08/18/22 1:40 pm (Follow-up discharge appointment with psychiatric medication provider Appointment in person at clinic [employer] will call with a sooner appointment after discharge as you have recently left hospital.) [facility] [Provider Group] - 1 Week (Walk in clinic as needed [phone]) [facility] [Primary Care Provider] - 1 Week Discharge Medications: New nicotine (polacrilex) 2 mg Gum 4 mg buccal Q2H PRN (Reason: Nicotine Cravings) Qty: 60 0RF nicotine 21 mg/24 hr Patch 24 Hour 21 mg transdermal DAILY Qty: 30 0RF escitalopram oxalate 5 mg Tablet 5 mg PO DAILY Qty: 30 0RF Vraylar 3 mg Capsule 3 mg PO DAILY Qty: 30 0RF haloperidol 5 mg Tablet 10 mg PO BEDTIME Qty: 30 0RF Continued prazosin 1 mg capsule 1 cap PO BID Qty: 60 0RF mirtazapine 7.5 mg tablet 1 tab PO BEDTIME Qty: 30 0RF Discontinued citalopram 10 mg tablet 1 tab PO DAILY divalproex 500 mg tablet,delayed release (DR/EC) 1 tab PO BID Discharge Orders: Discharge Order (Routine); Ordered 07/12/22 Ordered By: Yuly Alvarez Diet: Advance to usual diet Activity on Discharge: As tolerated Stand Alone Forms: Patient Portal Discharge page, Community Support Care Plan Goals: Mood and behavioral stabilization Health Concerns: Mood and behavioral stabilization Plan of Treatment: Connect with out patient providers Practice coping skills Take medications as directed Assessment: non suicidal, non homicidal non psychotic, non manic Discharge Date/Time: 07/12/22 11:38
== END 2022-07-12 11:38 | disposition home or self-care (01) | DRG 750 ==
LOC: HO.ED 20:38 → HO.PM5 07-06 14:59
PROVIDERS: Physician Assistant; Admitting Provider Psychiatry & Neurology Psychiatry; Emergency Provider Emergency Medicine Emergency Medical Services; Visit Provider Clinical Nurse Specialist Psychiatric/Mental Health, Adult
DX: F20.9 Schizophrenia, unspecified (principal); R45.851 Suicidal ideations; Z91.14 Patient's other noncompliance with medication regimen; F43.10 Post-traumatic stress disorder, unspecified; F16.10 Hallucinogen abuse, uncomplicated; F17.210 Nicotine dependence, cigarettes, uncomplicated; Z20.822 Contact with and (suspected) exposure to COVID-19; Z88.0 Allergy status to penicillin; Z71.6 Tobacco abuse counseling; Z79.899 Other long term (current) drug therapy
CPT/HCPCS: 36415; 80053; 80061; 80143; 80164; 80179; 80307; 81003; 82077; 82607; 82746; 83036; 83735; 84439; 84443; 85025; 87635; 93005; 99285